=== PATIENT | female | born 1990 | race Caucasian/White ===

== ENCOUNTER 2018-04-04 20:09 | Emergency (ER) | payer SELFPAY ==
--- NOTE | 2018-04-04 20:21 | PDOC ---
History of Present Illness - General History Source: Patient, Family Exam Limitations: No Limitations - History of Present Illness Initial Comments: 04/04/18 20:45 The patient is a 27 year old female, with a significant past medical history of taking suboxone and prozac, who presents to the emergency department with a dog bite to her lower lip this evening. The patient presents with her aunt with whom she has been staying with this week when her aunts dog, fully vaccinated, bit the patients lip. She is unsure when her last tetanus was. The patient denies chest pain, shortness of breath, headache and dizziness. The patient denies fever, chills, nausea, vomit, diarrhea and constipation. The patient denies dysuria, frequency, urgency and hematuria. Allergies: NKDA <Mindy Cosme - Last Filed: 04/04/18 20:45> <Yo Reid - Last Filed: 04/05/18 04:14> - General Chief Complaint: Bite Stated Complaint: LOWER LIP DOG BITE Time Seen by Provider: 04/04/18 20:21 Past History <Mindy Cosme - Last Filed: 04/04/18 20:45> <Yo Reid - Last Filed: 04/05/18 04:14> - Past Medical History Allergies/Adverse Reactions: Allergies Allergy/AdvReac Type Severity Reaction Status Date / Time No Known Allergies Allergy Verified 04/04/18 20:10 Home Medications: Ambulatory Orders Buprenorphine HCl/Naloxone HCl [Suboxone 8 mg-2 mg Sl Tablets] 32 mg SL DAILY Fluoxetine HCl [Prozac] 80 mg PO DAILY 04/04/18 Gabapentin 600 mg PO TID 04/04/18 Review of Systems - Review of Systems Able to Perform ROS?: Yes Comments:: 04/04/18 20:45 CONSTITUTIONAL: Absent: fever, chills, diaphoresis, generalized weakness, malaise, loss of appetite HEENT: (+) dog bite to lower lip. Absent: rhinorrhea, nasal congestion, throat pain, throat swelling, difficulty swallowing, mouth swelling, ear pain, eye pain, visual Changes CARDIOVASCULAR: Absent: chest pain, syncope, palpitations, irregular heart rate, lightheadedness , peripheral edema RESPIRATORY: Absent: cough, shortness of breath, dyspnea with exertion, orthopnea, wheezing, stridor, hemoptysis GASTROINTESTINAL: Absent: abdominal pain, abdominal distension, nausea, vomiting, diarrhea, constipation, melena, hematochezia GENITOURINARY: Absent: dysuria, frequency, urgency, hesitancy, hematuria, flank pain, genital pain MUSCULOSKELETAL: Absent: myalgia, arthralgia, joint swelling SKIN: Absent: rash, itching, pallor HEMATOLOGIC/IMMUNOLOGIC: Absent: easy bleeding, easy bruising, lymphadenopathy, frequent infections ENDOCRINE: Absent: unexplained weight gain, unexplained weight loss, heat intolerance, cold intolerance NEUROLOGIC: Absent: headache, focal weakness or paresthesias, dizziness, unsteady gait, seizure, mental status changes, bladder or bowel incontinence PSYCHIATRIC: Absent: anxiety, depression, suicidal or homicidal ideation, hallucinations. <Mindy Cosme - Last Filed: 04/04/18 20:45> *Physical Exam - Vital Signs Last Vital Signs Temp Pulse Resp BP Pulse Ox 98.1 F 87 20 120/75 100 04/04/18 20:10 04/04/18 20:10 04/04/18 20:10 04/04/18 20:10 04/04/18 20:10 - Physical Exam Comments: 04/04/18 20:45 GENERAL: Well developed, well nourished. Awake and alert. No acute distress. HEENT: (+) 2cm laceration of the lower lip not involving the labrum. Normocephalic, PERRLA, EOMI. No conjunctival pallor. Sclera are non-icteric. Moist mucous membranes. Oropharynx is clear. NECK: Supple. Full ROM. No JVD. Carotid pulses 2+ and symmetric, without bruits. No thyromegaly. No lymphadenopathy. CARDIOVASCULAR: Regular rate and rhythm. No murmurs, rubs, or gallops. Distal pulses are 2+ and symmetric. PULMONARY: No evidence of respiratory distress. Lungs clear to auscultation bilaterally. No wheezing, rales or rhonchi ABDOMINAL: Soft. Non-tender. Non-distended. No rebound or guarding. No organomegaly. Normoactive bowel sounds. MUSCULOSKELETAL Normal range of motion at all joints. No bony deformities or tenderness. No CVA tenderness. EXTREMITIES: No cyanosis. No clubbing. No edema. No calf tenderness. SKIN: Warm and dry. Normal capillary refill. No rashes. No jaundice. NEUROLOGICAL: Alert, awake, appropriate. Cranial nerves 2-12 intact. No deficits to light touch and temperature in face, upper extremities and lower extremities. No motor deficits in the in face, upper extremities and lower extremities. Normoreflexic in the upper and lower extremities. Normal speech. Toes are down-going bilaterally. Gait is normal without ataxia. PSYCHIATRIC: (+) Anxious. Cooperative. Good eye contact. Appropriate mood and affect. <Mindy Cosme - Last Filed: 04/04/18 20:45> Medical Decision Making - Medical Decision Making 04/05/18 04:13 dog bite vaccinations utd can be observed lip lac repaired-#3, 5-0 gut tetanus <Yo Reid - Last Filed: 04/05/18 04:14> *DC/Admit/Observation/Transfer - Attestations Scribe Attestion: 04/04/18 20:47 Documentation prepared by Mindy Cosme, acting as medical records receptionist for Yo Reid MD <Mindy Cosme - Last Filed: 04/04/18 20:45> <Yo Reid - Last Filed: 04/05/18 04:14> Diagnosis at time of Disposition: Lip laceration Qualifiers: Encounter type: initial encounter Qualified Code(s): S01.511A - Laceration without foreign body of lip, initial encounter - Discharge Dispostion Disposition: HOME Condition at time of disposition: Improved - Patient Instructions Printed Discharge Instructions: DI for Laceration Repair -- Simple
[2018-04-04 20:39] VITALS: BP 120/75; PULSE 87; TEMP 98.1; BMI 21.4
[2018-04-04] MEDS ORDERED: TETANUS AND DIPHTHERIA TOXOID 0.5 ML DISP.SYRIN IM ONE (20:44)
== END 2018-04-04 20:58 | disposition home or self-care (01) ==
LOC: FER 20:09
PROC: 0CQ1XZZ Repair Lower Lip, External Approach (ICD-10-PCS; principal; 2018-04-04)
DX: S01.551A Open bite of lip, initial encounter (principal); W54.0XXA Bitten by dog, initial encounter; Y93.89 Activity, other specified; Y92.89 Other specified places as the place of occurrence of the external cause; Z79.891 Long term (current) use of opiate analgesic
CPT/HCPCS: 99281-25